=== PATIENT | female | born 1935 | race Hispanic/Latino ===

== ENCOUNTER 2019-05-31 14:50 | Outpatient (CLI) | payer MEDICARE, MEDICAID ==
--- NOTE | 2019-05-31 15:10 | RAD ---
CERVICAL SPINE 3 VIEWS: HISTORY: Neck pain. FINDINGS: Degenerative changes are present. No fracture, subluxation, or bony destruction is seen. IMPRESSION: Cervical spondylosis. POS: OFF
== END 2019-05-31 14:51 | disposition home or self-care (01) ==
LOC: BICRAD 14:50
PROVIDERS: ATTEND Internal Medicine
DX: M54.2 Cervicalgia (principal); M47.812 Spondylosis without myelopathy or radiculopathy, cervical region
CPT/HCPCS: 72040

== ENCOUNTER 2019-10-13 08:03 | Outpatient (CLI) | payer MEDICARE, MEDICAID ==
--- NOTE | 2019-10-13 08:31 | RAD ---
XR Hip Rt 2-3 View HISTORY: Right hip pain FINDINGS: No fracture or dislocation is identified. No significant arthritic changes or bony destruction are se en.
== END 2019-10-13 08:04 | disposition home or self-care (01) ==
LOC: BICRAD 08:03
PROVIDERS: ATTEND Internal Medicine
DX: M25.551 Pain in right hip (principal)

== ENCOUNTER 2020-01-25 13:34 | Emergency (ER) | payer MEDICARE, MEDICAID ==
--- NOTE | 2020-01-25 15:55 | RAD ---
Exam: XR Hip Rt 2-3 View HISTORY: Right hip pain for 2 weeks which isn't gotten worse COMPARISON: 10/13/2019 FINDINGS: No acute fracture, dislocation, or other acute osseous abnormality is identified. Degenerative change s are seen in the pubic symphysis. Vascular calcifications are seen in the visualized infrarenal abdominal aorta and iliac arteries as w ell as overlying the pelvis. Views right hip are unchanged from prior study. IMPRESSION: No acute osseous abnormality is identified.
[2020-01-25] MEDS ORDERED: Ketorolac Tromethamine 30 MG/ML VIAL ONE (16:30)
== END 2020-01-25 17:25 | disposition home or self-care (01) ==
LOC: ERS 13:34
DX: M46.1 Sacroiliitis, not elsewhere classified (principal); E78.5 Hyperlipidemia, unspecified; I10 Essential (primary) hypertension; Z79.82 Long term (current) use of aspirin; Z79.899 Other long term (current) drug therapy
CPT/HCPCS: 96372; J1885

== ENCOUNTER 2020-02-01 16:29 | Outpatient (CLI) | payer MEDICARE, MEDICAID ==
--- NOTE | 2020-02-01 17:09 | RAD ---
XR Lumbar Spine 2 Or 3 View HISTORY: Fracture of L4 FINDINGS: There is [id number] compression fracture of L4, severe compression fractures of T12 and L1 vert ebral bodies, loss of height is most severe at T12 level.
== END 2020-02-01 16:30 | disposition home or self-care (01) ==
LOC: BICRAD 16:29
PROVIDERS: ATTEND Family Medicine
DX: S32.029A Unspecified fracture of second lumbar vertebra, initial encounter for closed fracture (principal); M48.061 Spinal stenosis, lumbar region without neurogenic claudication; G89.4 Chronic pain syndrome
CPT/HCPCS: 72100

== ENCOUNTER 2020-02-22 07:36 | Outpatient (CLI) | payer MEDICARE, MEDICAID ==
--- NOTE | 2020-02-22 10:38 | MRI ---
MRI LUMBAR SPINE WITHOUT CONTRAST: Date: 02/22/2020 INDICATION: Compression fracture of L4. Recent plain films from 02/01/2020 described mild compression of L4 with severe compression at T12 an d L1. Comparison made to MRI lumbar spine dated 11/29/2019. That exam revealed a severe compression deformi ty of L2. Minimal loss of height at L4. T12 was normally maintained on that exam. Correlation made to the plain films of 02/01/2020. That exam revealed severe compression of T12 and L 2. The description of a L1 compression on the plain film report appears to have been in error. FINDINGS: Today's MRI shows severe compression deformity of T12, which appears to have progressed somewhat sinc e the plain film of 02/01/2020. There is now vertebra plana type deformity. There is mild retropulsio n of the posterior cortex of T12. This does result in compression of the thecal sac and effacement of the subarachnoid space. No significant compression of the conus is noted. The L1 vertebra maintains normal height and exhibits normal signal. There is compression deformity of L2 which has a similar appearance to the plain film of 02/01/2020 a nd also has a similar appearance to the MRI of 11/29/2019. There is a superior end plate deformity at this vertebra which is stable. There is mild retropulsion of the posterior superior corner of L2 at the L1-2 disc. This appears stable from the prior MRI of 11/29/2019. This does compress the thecal sa c and does result in mild central canal stenosis. The L3 vertebra maintains normal height and alignment and exhibits normal signal. The L4 vertebra shows mild loss of height but is stable from the 11/29/2019 exam. There is no evidenc e of edema within this vertebral body. The L5 vertebra maintains normal height and exhibits normal signal. At the L2-3 disc level, there is a mild diffuse bulge mildly compressing the anterior thecal sac. The re is mild facet hypertrophy. Mild central canal stenosis. L3-4: Mild disc bulge with mild to moderate facet hypertrophy. Mild central canal stenosis. L4-5: Broad based disc bulge with mild facet and ligamentous hypertrophy with mild central canal gustavo nosis. L5-S1: Mild disc bulge with small central protrusion indenting the anterior thecal sac. Minimal face t hypertrophy. No significant central canal stenosis. IMPRESSION: 1. Severe compression deformity of the T12 vertebra has occurred since MRI of 11/29/2019. It was not ed on the plain film of 02/01/2020, but this compression has progressed. There is retropulsion at thi s level as described above. 2. Compression deformity of the L2 vertebra appears stable when compared to MRI of 11/29/2019. 3. Mild loss of height at L4 is stable without edema. 4. Mild disc bulges at the lumbar levels as described above. POS: AGW
== END 2020-02-22 07:37 | disposition home or self-care (01) ==
LOC: BICMRI 07:36
PROVIDERS: ATTEND Family Medicine
DX: S32.040G Wedge compression fracture of fourth lumbar vertebra, subsequent encounter for fracture with delayed healing (principal); M51.36 Other intervertebral disc degeneration, lumbar region
CPT/HCPCS: 72148

== ENCOUNTER 2020-05-30 11:55 | Emergency (ER) | payer MEDICARE, MEDICAID ==
[2020-05-30] MEDS ORDERED: Ketorolac Tromethamine 30 MG/ML VIAL ONE (12:26)
[2020-05-30] MEDS ORDERED: Metoprolol Tartrate 50 MG TAB ONE (12:26)
--- NOTE | 2020-05-30 12:52 | RAD ---
Exam:2 view left hip HISTORY: Pain and osteoarthritis COMPARISON: None FINDINGS: Joint space is preserved. Contour the femoral head and neck are maintained. No fracture. No fracture. Visualized bony pelvis. IMPRESSION: No radiographic abnormality to suggest significant degenerative change or fracture.
[2020-05-30] MEDS ORDERED: traMADol HCl 50 MG TAB ONE (14:23)
--- NOTE | 2020-05-30 14:25 | RAD ---
RADIOGRAPH LUMBAR SPINE 2 VIEWS: DATE: 05/30/2020 HISTORY: 84-year-old female with low back pain COMPARISON: 02/01/2020 FINDINGS: 5 lumbar-type vertebrae. Diffuse osteopenia. Severe collapse of T12 with vertebra plana configuration. Severe collapse of L2 with greater than 75% loss of height. Broad indentation of inferior endplate of L4 with mild loss of height. L1, L3, and L5 vertebral body heights are maintained. No high-grade disc space narrowing at any level. No scoliosis. No significant interval change IMPRESSION: 1) old compression and burst fractures of T12, L2, and L4. 2) T12 has the most severe loss of height, vertebral plana. 3) diffuse osteopenia. 4) no interval change
--- NOTE | 2020-05-30 14:27 | RAD ---
Time: 2 views sacrum and coccyx FINDINGS: Mild bony demineralization. Visualized sacral intact. No evidence of fracture evaluation is limited due to bony mineralization and overlying bowel gas IMPRESSION: No fracture.
== END 2020-05-30 14:40 | disposition home or self-care (01) ==
LOC: ERS 11:55
DX: M16.12 Unilateral primary osteoarthritis, left hip (principal); E78.5 Hyperlipidemia, unspecified; I10 Essential (primary) hypertension; Z79.82 Long term (current) use of aspirin; Z79.899 Other long term (current) drug therapy
CPT/HCPCS: 96372; J1885

== ENCOUNTER 2020-11-19 11:12 | Observation (INO) | payer MEDICARE, MEDICAID ==
[2020-11-19 11:49] LABS: Bilirubin Negative (Negative); Blood, Urine Negative (Negative); Clarity Clear (Clear); Glucose, Urine (Dipstick) Normal (Negative); Ketone, Urine Negative (Negative); Leukocyte 75 Leu/uL (Negative); Nitrite Negative (Negative); Protein, Urine (Dipstick) 20 mg/dL (Neg-Trace); RBC/HPF 0-3 HPF (0-3); Specific Gravity, Urine 1.024 (1.002-1.036); Squamous Epithelial 0-3 HPF (0-3); pH, Urine 6.5 (5.0-9.0)
[2020-11-19 12:00] LABS: Bacteria/HPF 1+ HPF (None Seen)
[2020-11-19 12:03] LABS: Hemoglobin 11.3 g/dL (12.0-16.0); Mean Corpuscular HGB CONC 32.8 g/dL (32.0-36.0); Mean Corpuscular Volume 97.4 fL (78.0-98.0); Mean Platelet Volume 8.8 fL (7.4-10.4); Platelet Count 185 thou/uL (130-400); Red Blood Cell (RBC) Count 3.54 mill/uL (4.20-5.40); White Blood Cell (WBC) Count 6.1 thou/uL (4.8-10.8)
[2020-11-19 12:27] LABS: ALT (SGPT) 22 U/L (8-55); AST (SGOT) 26 U/L (5-34); Albumin 3.9 g/dL (3.4-4.8); Alkaline Phosphatase 46 U/L (40-110); Anion Gap 9 mmol/L (10-20); BUN (Urea Nitrogen) 21 mg/dL (9.8-20.1); Bilirubin, Total 0.4 mg/dL (0.2-1.2); Calc. Creatinine Clearance 0 mL/min (70-130); Calcium 9.2 mg/dL (7.8-10.44); Carbon Dioxide 28 mmol/L (23-31); Chloride 101 mmol/L (98-107); Globulin 3.4 g/dL (2.4-3.5); Glucose 133 mg/dL (83-110); Potassium 4.1 mmol/L (3.5-5.1); Protein, Total 7.3 g/dL (5.8-8.1); Sodium 134 mmol/L (136-145)
[2020-11-19 12:33] LABS: Band 7 % (5-11); Eosinophils 5 % (0-10); Lymphocytes 28 % (21-51); MDiff Complete? YES; Monocytes 6 % (0-10); Neutrophil 52 % (42-75); Platelet Morphology Comment Appears Adequate; RBC Morphology Normal; Reactive Lymphocytes 1 % (0-10)
[2020-11-19] MEDS ORDERED: Ibuprofen 800 MG TAB ONE (13:33)
[2020-11-19] MEDS ORDERED: cefTRIAXone\\ROCEPHIN 2 GM VIAL ONE (13:34)
[2020-11-19 14:53] LABS: Troponin I 0.015 ng/mL (< 0.028)
[2020-11-19] MEDS ORDERED: Bisacodyl 5 MG TAB PO PRN (15:14)
[2020-11-19] MEDS ORDERED: Calcium Carbonate 500 MG ChewTAB PO PRN (15:14)
[2020-11-19] MEDS ORDERED: Ondansetron ODT 4 MG TAB PO PRN (15:14)
[2020-11-19] MEDS ORDERED: Senokot S 8.6-50 MG TAB PO PRN (15:14)
[2020-11-19] MEDS ORDERED: Ondansetron PF 4 MG/2 ML Vial IVP PRN (15:14)
[2020-11-19] MEDS ORDERED: Acetaminophen 325 MG TAB PO PRN (15:14)
[2020-11-19] MEDS ORDERED: Amlodipine 5 MG TAB ONE (15:48)
[2020-11-19] MEDS ORDERED: Lisinopril 5 MG TAB PO SCH (16:30)
[2020-11-19] MEDS ORDERED: Amlodipine 5 MG TAB PO SCH (16:30)
[2020-11-19] MEDS ORDERED: Lisinopril 10 MG TAB ONE (16:35)
[2020-11-19 16:57] LABS: SARS-CoV-2 NAA Rapid Test Not Detected (NotDetected)
[2020-11-19] MEDS ORDERED: Labetalol HCl 100 MG/20 ML VIAL SLOW IVP PRN (18:19)
[2020-11-19] MEDS ORDERED: hydrALAZINE 20 MG/ML VIAL SLOW IVP PRN (18:20)
[2020-11-19 18:29] LABS: Troponin I 0.023 ng/mL (< 0.028)
[2020-11-19] MEDS ORDERED: Atorvastatin Calcium 10 MG TAB PO SCH (21:00)
[2020-11-19 21:48] VITALS: BMI 19.3
[2020-11-20] MEDS ORDERED: Regadenoson 0.4 MG/5 ML SYRINGE ONE (08:49)
[2020-11-20] MEDS ORDERED: Lisinopril 5 MG TAB PO SCH (09:00)
[2020-11-20] MEDS ORDERED: Amlodipine 5 MG TAB PO SCH (09:00)
[2020-11-20] MEDS ORDERED: Metoprolol Tartrate 25 MG TAB PO SCH (09:00)
[2020-11-20] MEDS ORDERED: Aspirin 81 mg Enteric Coated Tablet PO SCH (09:00)
[2020-11-20] MEDS ORDERED: Dexamethasone 10 MG in Sodium Chloride 0.9% 50 ML IVPB SCH (12:30)
[2020-11-20 16:55] VITALS: BP 130/61; TEMP 98.1
[2020-11-21] MEDS ORDERED: Amlodipine 5 MG TAB PO SCH (09:00)
== END 2020-11-20 18:53 | disposition home or self-care (01) ==
LOC: ERS 11:12 → ERHOLD 14:04 → 2SW 21:19
PROVIDERS: ADMIT Internal Medicine; ATTEND Internal Medicine
DX: R55 Syncope and collapse (principal); I16.0 Hypertensive urgency; I10 Essential (primary) hypertension; M81.0 Age-related osteoporosis without current pathological fracture; F03.90 Unspecified dementia, unspecified severity, without behavioral disturbance, psychotic disturbance, mood disturbance, and anxiety; E78.5 Hyperlipidemia, unspecified; I25.10 Atherosclerotic heart disease of native coronary artery without angina pectoris; M16.11 Unilateral primary osteoarthritis, right hip; H40.9 Unspecified glaucoma; N32.81 Overactive bladder; I95.9 Hypotension, unspecified; M85.80 Other specified disorders of bone density and structure, unspecified site; Z79.1 Long term (current) use of non-steroidal anti-inflammatories (NSAID); Z79.82 Long term (current) use of aspirin; Z79.83 Long term (current) use of bisphosphonates; Z79.899 Other long term (current) drug therapy; Z20.822 Contact with and (suspected) exposure to COVID-19
CPT/HCPCS: 0240U; 70450; 71045; 78452; 80053; 83605; 84146; 84484 ×2; 85025; 93005; 93017; 95816; 95819; 96365; 99285; A9500; G0378 ×3; 36415; 81003; 81015; J0696; J2785

== ENCOUNTER 2021-09-18 17:22 | Emergency (ER) | payer MEDICARE, MEDICAID ==
[2021-09-18] MEDS ORDERED: predniSONE 20 MG TAB ONE (21:27)
[2021-09-19] MEDS ORDERED: Metoprolol Tartrate 25 MG TAB ONE (03:15)
[2021-09-19] MEDS ORDERED: HYDROcodone/Acetaminophen 5/325 mg Tablet ONE (03:32)
== END 2021-09-19 04:55 | disposition short-term general hospital (02) ==
LOC: ERS 17:22
DX: S32.511A Fracture of superior rim of right pubis, initial encounter for closed fracture (principal); S32.000A Wedge compression fracture of unspecified lumbar vertebra, initial encounter for closed fracture; I10 Essential (primary) hypertension; E78.5 Hyperlipidemia, unspecified; M81.0 Age-related osteoporosis without current pathological fracture; X58.XXXA Exposure to other specified factors, initial encounter; Z79.82 Long term (current) use of aspirin; Z79.899 Other long term (current) drug therapy
CPT/HCPCS: 72100; 72170; J7512

== ENCOUNTER 2021-09-30 09:14 | Emergency (ER) | payer MEDICARE, MEDICAID ==
[2021-09-30] MEDS ORDERED: traMADol HCl 50 MG TAB ONE (10:36)
== END 2021-09-30 13:11 | disposition home or self-care (01) ==
LOC: ERS 09:14
DX: S76.011A Strain of muscle, fascia and tendon of right hip, initial encounter (principal); S32.059D Unspecified fracture of fifth lumbar vertebra, subsequent encounter for fracture with routine healing; S32.591D Other specified fracture of right pubis, subsequent encounter for fracture with routine healing; X58.XXXA Exposure to other specified factors, initial encounter; E78.5 Hyperlipidemia, unspecified; I10 Essential (primary) hypertension; M81.0 Age-related osteoporosis without current pathological fracture; Z79.899 Other long term (current) drug therapy
CPT/HCPCS: 72170; 72192

== ENCOUNTER 2021-12-08 18:51 | Emergency (ER) | payer MEDICARE, MEDICAID ==
[~2021-12-08 18:51] MED LIST: Iopamidol-370 76% 500 ML 1 ML ONE
[2021-12-08] MEDS ORDERED: Morphine 2 MG/ML VIAL ONE (19:38)
[2021-12-08 19:49] LABS: #Eosinphils 0.1 thou/uL (0.0-0.7); #Lymphocytes 0.9 thou/uL (1.20-3.40); #Monocytes 0.6 thou/uL (0.11-0.59); #Neutrophils 7.1 thou/uL (1.40-6.50); %Basophils 0.4 % (0.0-1.0); %Eosinophils 0.8 % (0.0-10.0); %Lymphocytes 10.4 % (21.0-51.0); %Neutrophils 81.4 % (42.0-75.0); Hemoglobin 11.6 g/dL (12.0-16.0); Mean Corpuscular Hemoglobin 32.3 pg (27.0-31.0); Mean Corpuscular Volume 97.7 fL (78.0-98.0); Mean Platelet Volume 9.1 fL (7.4-10.4); Platelet Count 172 thou/uL (130-400); RBC Distribution Width 13.3 % (11.5-14.5); White Blood Cell (WBC) Count 8.7 thou/uL (4.8-10.8)
[2021-12-08 20:06] LABS: Bilirubin Negative (Negative); Blood, Urine 1+ (Negative); Clarity Clear (Clear); Glucose, Urine (Dipstick) Normal (Negative); Ketone, Urine Negative (Negative); Leukocyte Negative Leu/uL (Negative); Nitrite Negative (Negative); Protein, Urine (Dipstick) 10 mg/dL (Neg-Trace); Squamous Epithelial None Seen HPF (0-3); Urobilinogen Normal mg/dL (Less than 2); WBC/HPF 0-3 HPF (0-3); pH, Urine 6.5 (5.0-9.0)
[2021-12-08 20:07] LABS: ALT (SGPT) 14 U/L (8-55); AST (SGOT) 31 U/L (5-34); Albumin 4.2 g/dL (3.4-4.8); Alkaline Phosphatase 58 U/L (40-110); Anion Gap 12 mmol/L (10-20); BUN (Urea Nitrogen) 20 mg/dL (9.8-20.1); Bilirubin, Total 0.7 mg/dL (0.2-1.2); Calc. Creatinine Clearance 0 mL/min (70-130); Calcium 9.1 mg/dL (7.8-10.44); Carbon Dioxide 27 mmol/L (23-31); Chloride 103 mmol/L (98-107); Estimated GFR 86; Globulin 3.6 g/dL (2.4-3.5); Glucose 142 mg/dL (83-110); Lipase 11 U/L (8-78); Potassium 4.4 mmol/L (3.5-5.1); Protein, Total 7.8 g/dL (5.8-8.1); Sodium 138 mmol/L (136-145)
[2021-12-08 20:15] LABS: Bacteria/HPF Rare-Few HPF (None Seen)
== END 2021-12-08 22:07 | disposition home or self-care (01) ==
LOC: ERS 18:51
DX: S32.021A Stable burst fracture of second lumbar vertebra, initial encounter for closed fracture (principal); S32.031A Stable burst fracture of third lumbar vertebra, initial encounter for closed fracture; S32.041A Stable burst fracture of fourth lumbar vertebra, initial encounter for closed fracture; S32.051A Stable burst fracture of fifth lumbar vertebra, initial encounter for closed fracture; S22.081A Stable burst fracture of T11-T12 vertebra, initial encounter for closed fracture; K76.89 Other specified diseases of liver; E78.5 Hyperlipidemia, unspecified; I10 Essential (primary) hypertension; Z79.899 Other long term (current) drug therapy
CPT/HCPCS: 51701; 71045; 74177; 80053; 83605; 83690; 84484; 85025; 93005; 96374; 99284; J2270; 81003; 81015; Q9967

== ENCOUNTER 2022-04-21 08:39 | Emergency (ER) | payer MEDICARE, MEDICAID ==
[2022-04-21] MEDS ORDERED: Iopamidol-370 76% 500 ML 1 ML ONE (08:40)
[2022-04-21] MEDS ORDERED: Acetaminophen 500 MG TAB ONE (09:04)
== END 2022-04-21 11:11 | disposition home or self-care (01) ==
LOC: ERS 08:39
DX: S22.050A Wedge compression fracture of T5-T6 vertebra, initial encounter for closed fracture (principal); S22.071A Stable burst fracture of T9-T10 vertebra, initial encounter for closed fracture; E78.5 Hyperlipidemia, unspecified; I10 Essential (primary) hypertension; W06.XXXA Fall from bed, initial encounter; Z79.82 Long term (current) use of aspirin; Z79.899 Other long term (current) drug therapy
CPT/HCPCS: 71260; 74177; Q9967

== ENCOUNTER 2022-06-07 13:41 | Inpatient (IN) | payer MEDICARE, MEDICAID ==
[2022-06-07 15:14] LABS: #Lymphocytes 1.1 thou/uL (1.20-3.40); #Monocytes 0.4 thou/uL (0.11-0.59); #Neutrophils 3.2 thou/uL (1.40-6.50); %Basophils 0.3 % (0.0-1.0); %Eosinophils 0.9 % (0.0-10.0); %Lymphocytes 23.2 % (21.0-51.0); %Monocytes 8.1 % (0.0-10.0); %Neutrophils 67.5 % (42.0-75.0); Hemoglobin 11.2 g/dL (12.0-16.0); Mean Corpuscular HGB CONC 33.2 g/dL (32.0-36.0); Mean Corpuscular Hemoglobin 32.8 pg (27.0-31.0); Mean Corpuscular Volume 98.9 fl (78.0-98.0); Mean Platelet Volume 8.6 fL (7.4-10.4); Platelet Count 185 10x3/uL (130-400); RBC Distribution Width 13.1 % (11.5-14.5); Red Blood Cell (RBC) Count 3.42 mill/uL (4.20-5.40); White Blood Cell (WBC) Count 4.7 10x3/uL (4.8-10.8)
[2022-06-07 15:39] LABS: ALT (SGPT) 12 U/L (8-55); AST (SGOT) 18 U/L (5-34); Alkaline Phosphatase 54 U/L (40-110); Anion Gap 9 mmol/L (10-20); BUN (Urea Nitrogen) 21 mg/dL (9.8-20.1); Bilirubin, Total 0.5 mg/dL (0.2-1.2); Calc. Creatinine Clearance 0 mL/min (70-130); Calcium 9.6 mg/dL (7.8-10.44); Carbon Dioxide 31 mmol/L (23-31); Chloride 104 mmol/L (98-107); Estimated GFR 86; Globulin 2.5 g/dL (2.4-3.5); Glucose 111 mg/dL (83-110); Potassium 5.2 mmol/L (3.5-5.1); Protein, Total 6.5 g/dL (5.8-8.1); Sodium 139 mmol/L (136-145)
[2022-06-07] MEDS ORDERED: Ondansetron PF 4 MG/2 ML Vial IVP PRN (18:46)
[2022-06-07] MEDS ORDERED: Ondansetron ODT 4 MG TAB PO PRN (18:46)
[2022-06-07] MEDS ORDERED: Acetaminophen 500 MG TAB PO SCH (19:00)
[2022-06-07 22:50] LABS: Bacteria/HPF None Seen HPF (None Seen); Bilirubin Negative (Negative); Blood, Urine Negative (Negative); CAUTI Indications for Culture Alt mental st,lethar; Clarity Clear (Clear); Glucose, Urine (Dipstick) Normal (Negative); Ketone, Urine Negative (Negative); Leukocyte Negative Leu/uL (Negative); Nitrite Negative (Negative); Protein, Urine (Dipstick) Negative (Neg-Trace); RBC/HPF 0-3 HPF (0-3); Specific Gravity, Urine 1.011 (1.002-1.036); Squamous Epithelial 0-3 HPF (0-3); Urobilinogen Normal mg/dL (Less than 2); WBC/HPF 0-3 HPF (0-3)
[2022-06-07 22:51] LABS: Urine Culture Reflex No No
[2022-06-07 23:48] VITALS: BMI 13.8
[2022-06-08 00:07] LABS: Anion Gap 7 mmol/L (10-20); BUN (Urea Nitrogen) 19 mg/dL (9.8-20.1); Calc. Creatinine Clearance 29 mL/min (70-130); Calcium 8.9 mg/dL (7.8-10.44); Carbon Dioxide 25 mmol/L (23-31); Chloride 110 mmol/L (98-107); Estimated GFR 87; Glucose 93 mg/dL (83-110); Potassium 4.1 mmol/L (3.5-5.1); Sodium 138 mmol/L (136-145)
[2022-06-08 04:52] LABS: #Eosinphils 0.1 thou/uL (0.0-0.7); #Lymphocytes 1.9 thou/uL (1.20-3.40); #Monocytes 0.4 thou/uL (0.11-0.59); #Neutrophils 2.2 thou/uL (1.40-6.50); %Basophils 0.6 % (0.0-1.0); %Eosinophils 2.1 % (0.0-10.0); %Lymphocytes 41.2 % (21.0-51.0); %Neutrophils 47.1 % (42.0-75.0); Hemoglobin 10.5 g/dL (12.0-16.0); Mean Corpuscular HGB CONC 33.9 g/dL (32.0-36.0); Mean Corpuscular Hemoglobin 33.5 pg (27.0-31.0); Mean Corpuscular Volume 98.9 fl (78.0-98.0); Mean Platelet Volume 8.9 fL (7.4-10.4); Platelet Count 168 10x3/uL (130-400); RBC Distribution Width 13.3 % (11.5-14.5); Red Blood Cell (RBC) Count 3.12 mill/uL (4.20-5.40); White Blood Cell (WBC) Count 4.7 10x3/uL (4.8-10.8)
[2022-06-08 05:12] LABS: Iron 78 ug/dL (50-170); Iron Binding Capacity, Total 351 mcg/dL (265-497)
[2022-06-08 05:37] LABS: Ferritin 34.31 ng/mL (10-291); Thyroid Stimulating Hormone 2.4848 uIU/mL (0.35-4.94)
[2022-06-08] MEDS ORDERED: Simvastatin 20 MG TAB PO SCH (09:00)
[2022-06-08 09:20] LABS: Troponin I 0.019 ng/mL (< 0.028)
[2022-06-08] MEDS: Aspirin 81 mg Enteric Coated Tablet PO SCH (09:26)
[2022-06-08] MEDS: Lisinopril 5 MG TAB PO SCH (09:26)
[2022-06-08] MEDS: Acetaminophen 500 MG TAB PO PRN ×2 (11:32→21:40)
[2022-06-08] MEDS ORDERED: Lidocaine 1% w/Epinephrine 1:100K 20 ML VIAL ONE (11:57)
[2022-06-08] MEDS ORDERED: Atorvastatin Calcium 10 MG TAB PO SCH (21:00)
[2022-06-09 05:20] LABS: #Basophils 0.1 thou/uL (0.0-0.2); #Eosinphils 0.1 thou/uL (0.0-0.7); #Lymphocytes 1.7 thou/uL (1.20-3.40); #Monocytes 0.4 thou/uL (0.11-0.59); #Neutrophils 1.7 thou/uL (1.40-6.50); %Basophils 1.5 % (0.0-1.0); %Eosinophils 2.8 % (0.0-10.0); %Monocytes 10.7 % (0.0-10.0); Hemoglobin 9.9 g/dL (12.0-16.0); Mean Corpuscular HGB CONC 33.1 g/dL (32.0-36.0); Mean Corpuscular Hemoglobin 33.1 pg (27.0-31.0); Mean Platelet Volume 8.6 fL (7.4-10.4); Platelet Count 173 10x3/uL (130-400); RBC Distribution Width 13.5 % (11.5-14.5)
[2022-06-09 05:34] LABS: ALT (SGPT) 14 U/L (8-55); AST (SGOT) 19 U/L (5-34); Albumin 3.4 g/dL (3.4-4.8); Alkaline Phosphatase 43 U/L (40-110); Anion Gap 10 mmol/L (10-20); BUN (Urea Nitrogen) 21 mg/dL (9.8-20.1); Bilirubin, Direct 0.2 mg/dL (0.1-0.3); Bilirubin, Total 0.4 mg/dL (0.2-1.2); Calc. Creatinine Clearance 29 mL/min (70-130); Calcium 8.3 mg/dL (7.8-10.44); Carbon Dioxide 27 mmol/L (23-31); Chloride 108 mmol/L (98-107); Estimated GFR 87; Glucose 83 mg/dL (83-110); Magnesium 2.3 mg/dL (1.6-2.6); Potassium 3.8 mmol/L (3.5-5.1); Protein, Total 5.7 g/dL (5.8-8.1); Sodium 141 mmol/L (136-145)
[2022-06-09] MEDS: Aspirin 81 mg Enteric Coated Tablet PO SCH (09:12)
[2022-06-09] MEDS: Lisinopril 5 MG TAB PO SCH (09:12)
[2022-06-09 17:11] VITALS: BP 151/68; TEMP 98
[2022-06-09] MEDS ORDERED: Lisinopril 5 MG TAB PO SCH (21:00)
== END 2022-06-09 17:16 | disposition home or self-care (01) | DRG 262 ==
LOC: ERS 13:41 → 2NO 16:17 → OBSVTOIN 06-08 15:49
PROVIDERS: ADMIT Family Medicine; ATTEND Internal Medicine
PROC: 0JH602Z Insertion of Monitoring Device into Chest Subcutaneous Tissue and Fascia, Open Approach (ICD-10-PCS; principal; 2022-06-09)
DX: R00.1 Bradycardia, unspecified (principal); I10 Essential (primary) hypertension; E78.5 Hyperlipidemia, unspecified; E87.5 Hyperkalemia; D64.9 Anemia, unspecified; M47.9 Spondylosis, unspecified; F03.90 Unspecified dementia, unspecified severity, without behavioral disturbance, psychotic disturbance, mood disturbance, and anxiety; M81.0 Age-related osteoporosis without current pathological fracture; R55 Syncope and collapse; Z20.822 Contact with and (suspected) exposure to COVID-19; Z79.82 Long term (current) use of aspirin; Z79.899 Other long term (current) drug therapy
CPT/HCPCS: 33285; 36415; 71045; 80048; 80053; 80076; 81001; 82607; 82728; 83540; 83550; 83735; 83880; 84443; 84484; 85025; 93005; 93306; 94760; 96372; G0378; J1650; U0003; U0005

== ENCOUNTER 2023-03-23 16:34 | Emergency (ER) | payer MEDICARE, MEDICAID ==
[2023-03-23 18:28] LABS: #Monocytes 0.5 thou/uL (0.11-0.59); #Neutrophils 2.8 thou/uL (1.40-6.50); %Basophils 0.4 % (0.0-1.0); %Eosinophils 0.4 % (0.0-10.0); %Lymphocytes 29.1 % (21.0-51.0); %Monocytes 9.6 % (0.0-10.0); %Neutrophils 60.1 % (42.0-75.0); Hemoglobin 10.4 g/dL (12.0-16.0); Mean Corpuscular HGB CONC 32.5 g/dL (32.0-36.0); Mean Corpuscular Hemoglobin 32.7 pg (27.0-31.0); Mean Corpuscular Volume 100.6 fl (78.0-98.0); Mean Platelet Volume 10.4 fL (7.4-10.4); Platelet Count 177 10x3/uL (130-400); RBC Distribution Width 13.1 % (11.5-14.5); Red Blood Cell (RBC) Count 3.18 mill/uL (4.20-5.40); White Blood Cell (WBC) Count 4.7 10x3/uL (4.8-10.8)
[2023-03-23 18:30] LABS: Bacteria/HPF None Seen HPF (None Seen); Bilirubin Negative (Negative); Blood, Urine 1+ (Negative); CAUTI Indications for Culture Pelvic or flank pain; Clarity Turbid (Clear); Glucose, Urine (Dipstick) Normal (Negative); Ketone, Urine Negative (Negative); Leukocyte Negative Leu/uL (Negative); Nitrite Negative (Negative); Protein, Urine (Dipstick) Negative (Neg-Trace); Specific Gravity, Urine 1.017 (1.002-1.036); Squamous Epithelial None Seen HPF (0-3); WBC/HPF 0-3 HPF (0-3); pH, Urine 6.5 (5.0-9.0)
[2023-03-23 18:33] LABS: Urine Culture Reflex No No
[2023-03-23 19:00] LABS: ALT (SGPT) 10 U/L (8-55); AST (SGOT) 19 U/L (5-34); Albumin 3.9 g/dL (3.4-4.8); Alkaline Phosphatase 49 U/L (40-110); Anion Gap 14 mmol/L (10-20); BUN (Urea Nitrogen) 18 mg/dL (9.8-20.1); Bilirubin, Total 0.6 mg/dL (0.2-1.2); Calc. Creatinine Clearance 0 mL/min (70-130); Carbon Dioxide 27 mmol/L (23-31); Chloride 107 mmol/L (98-107); Estimated GFR 88; Globulin 2.7 g/dL (2.4-3.5); Glucose 84 mg/dL (83-110); Lipase 17 U/L (8-78); Protein, Total 6.6 g/dL (5.8-8.1); Sodium 145 mmol/L (136-145)
[2023-03-23] MEDS ORDERED: Potassium Chloride 20 MEQ TAB ONE (19:49)
== END 2023-03-23 19:59 | disposition home or self-care (01) ==
LOC: ERS 16:34
DX: K62.3 Rectal prolapse (principal); I10 Essential (primary) hypertension; E78.5 Hyperlipidemia, unspecified; Z79.899 Other long term (current) drug therapy; Z79.82 Long term (current) use of aspirin
CPT/HCPCS: 36415; 51701; 80053; 81001; 83690; 85025

== ENCOUNTER 2023-10-05 13:05 | Outpatient (CLI) | payer MEDICARE, MEDICAID | END 2023-10-05 13:06 | disposition home or self-care (01) | LOC: BICRAD 13:05 | PROVIDERS: ATTEND Nurse Practitioner | DX: R07.81 Pleurodynia (principal); R29.6 Repeated falls; J98.11 Atelectasis; S22.009A Unspecified fracture of unspecified thoracic vertebra, initial encounter for closed fracture; S32.009A Unspecified fracture of unspecified lumbar vertebra, initial encounter for closed fracture | CPT/HCPCS: 71046 ==